=== PATIENT | male | born 1945 | race Caucasian/White ===

== ENCOUNTER 2019-09-01 11:35 | Outpatient (CLI) | payer MEDICARE, SELFPAY ==
[2019-09-01 11:56] LABS: Add Urine Microscopic? NO; Appearance Urine Clear (Clear); Basophils Absolute Auto 0.03 K/mm3 (0.00-0.10); Basophils Percent Auto 0.6 % (0.0-1.0); Bilirubin Urine Negative (Negative); Blood Urine Negative (Negative); Color Urine Yellow (Yellow); Eosinophils Absolute Auto 0.06 K/mm3 (0.02-0.50); Eosinophils Percent Auto 1.2 % (1.0-6.0); Glucose Urine UA Negative (Negative); Hematocrit 44.6 % (37.0-46.0); Hemoglobin 14.8 g/dL (12.4-15.3); Immature Granulocyte Absolute 0.01 K/mm3 (0.00-0.00); Immature Granulocyte Percent A 0.2 % (0.0-0.0); Ketones Urine Negative (Negative); Leukocyte Esterase Ur Negative LEU/UL (Negative); Lymphocytes Absolute Auto 1.94 K/mm3 (1.10-4.50); Lymphocytes Percent Auto 37.2 % (18.0-42.0); Mean Corpuscular HGB Conc 33.2 g/dL (32.0-36.0); Mean Corpuscular Hemoglobin 30.4 pg (27.0-31.0); Mean Corpuscular Volume 91.6 fL (78.0-102.0); Mean Platelet Volume 10.3 fl (8.7-11.0); Monocytes Absolute Auto 0.52 K/mm3 (0.10-0.90); Neutrophils Absolute Auto 2.7 K/mm3 (1.7-7.2); Neutrophils Percent Auto 50.8 % (50.0-70.0); Nitrate Urine Negative (Negative); Platelet Count Result 179 K/mm3 (150-420); Protein Urine Negative (Negative); Red Blood Count 4.87 M/mm3 (4.70-6.10); Red Cell Distribution Width 12.4 % (11.6-14.4); Specific Grav Ur 1.015 (1.010-1.020); Urobilinogen Urine 0.2 mg/dL (0.2-1.0); White Blood Count 5.2 K/mm3 (4.8-10.8)
[2019-09-01 12:40] LABS: Alanine Aminotransferase 23 U/L (16-63); Albumin Level 3.7 g/dL (3.4-5.0); Alkaline Phosphatase 78 U/L (46-116); Anion Gap 11.8 mmol/L (7-16); Aspartate Amino Transferase 26 U/L (15-37); Bilirubin,Total 0.8 mg/dL (0.00-1.00); Blood Urea Nitrogen 12 mg/dL (7-18); Calcium 8.7 mg/dL (8.5-10.1); Carbon Dioxide 28 mmol/L (21-32); Chloride 105 mmol/L (98-108); Cholesterol 188 mg/dL (0-200); Estimated Glomerular Filt Rate 57; Glucose 89 mg/dL (70-99); HDL Direct 40 mg/dL (40-60); LDL Cholesterol Calculated 119 mg/dL (<130); Osmolality Calculated 288 mOsm/kg (285-295); Potassium 4.8 mmol/L (3.5-5.1); Prostate Specific Antigen 0.7 ng/mL (< OR = 4.0); Sodium 140 mmol/L (136-145); Total Protein 7.2 g/dL (6.4-8.2); Triglycerides 147 mg/dL (0-150)
== END 2019-09-01 11:36 | disposition home or self-care (01) ==
LOC: CHSLAB 11:42
PROVIDERS: PCP Internal Medicine; Visit Provider Internal Medicine
DX: E78.2 Mixed hyperlipidemia (principal); Z12.5 Encounter for screening for malignant neoplasm of prostate
CPT/HCPCS: 36415; 80053; 80061; 81003; 84153; 85025; G0103

== ENCOUNTER 2021-10-28 14:13 | Outpatient (CLI) | payer MEDICARE, SELFPAY ==
--- NOTE | ~2021-10-28 | US_ITS ---
EXAMINATION: US carotid duplex BI DATE: 10/28/2021 15:03 INDICATION: Right carotid bruit TECHNIQUE: Grayscale, color Doppler, and pulsed Doppler images of the cervical carotid arteries were obtained. The degree of vessel stenosis is placed in one of the following categories: normal, <50%, 5 0-69%, >=70% but less than near-occlusion, near-occlusion, or total occlusion. Note that percent sten osis relative to normal distal artery lumen diameter is indirectly measured from velocity measurement s as described by Constantin, et al. Radiology 2003; 229:340-346. COMPARISON: None. FINDINGS: RIGHT: The right common carotid artery (CCA) peak systolic velocity (PSV) is 107 cm/s. The right internal ca rotid artery (ICA) PSV is 76 cm/s. The right ICA end-diastolic velocity (EDV) is 12 cm/s. The right I CA/CCA PSV ratio is 0.7. Grayscale and color Doppler images yield an estimate of <50% diameter reduct ion from plaque in the ICA. The external carotid artery (ECA) PSV is 97 cm/s. There is antegrade flow in the right vertebral artery. Incidental 2.6 cm solid isoechoic nodule with smooth margins and with out echogenic foci in the right thyroid (TI-RADS 3, mildly suspicious , FNA if >=2.5 cm, annual follo wup is >=1.5 cm). LEFT: The left CCA PSV is 100 cm/s. The left ICA PSV is 72 cm/s. The left ICA EDV is 17 cm/s. The left ICA/ CCA PSV ratio is 0.7. Grayscale and color Doppler images yield an estimate of <50% diameter reduction from plaque in the ICA. The ECA PSV is 91 cm/s. There is antegrade flow in the left vertebral artery . IMPRESSION: 1. <50% stenosis in the right internal carotid artery. 2. <50% stenosis in the left internal carotid artery. 3. Incidental 2.6 cm TI RADS 3 right thyroid nodule for which ultrasound-guided biopsy would be recom mended. Reviewed, dictated and finalized at location B. IMPRESSION: 1. <50% stenosis in the right internal carotid artery. 2. <50% stenosis in the left internal carotid artery. 3. Incidental 2.6 cm TI RADS 3 right thyroid nodule for which ultrasound-guided biopsy would be recommended.
== END 2021-10-28 14:14 | disposition home or self-care (01) ==
LOC: CHSIMG 14:14
PROVIDERS: PCP Internal Medicine; Visit Provider Internal Medicine
DX: R09.89 Other specified symptoms and signs involving the circulatory and respiratory systems (principal)
CPT/HCPCS: 93880

== ENCOUNTER 2023-02-22 11:49 | Emergency (ER) | payer OTHER, SELFPAY ==
[2023-02-22 11:50] VITALS: BP 188/89; PULSE 73; RESP 18; TEMP 36.5; O2SAT 99
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
[2023-02-22 12:05] VITALS: BP 158/78
== END 2023-02-22 12:10 | disposition home or self-care (01) ==
LOC: CHSED 12:05
PROVIDERS: Emergency Provider Emergency Medicine; PCP Internal Medicine
DX: Z04.1 Encounter for examination and observation following transport accident (principal); E78.5 Hyperlipidemia, unspecified; V47.5XXA Car driver injured in collision with fixed or stationary object in traffic accident, initial encounter; Y92.410 Unspecified street and highway as the place of occurrence of the external cause
CPT/HCPCS: 99282

== ENCOUNTER 2023-03-05 06:55 | Outpatient (CLI) | payer MEDICARE, SELFPAY ==
--- NOTE | ~2023-03-05 | MR_ITS ---
EXAMINATION: MR brain/brain stem wo con DATE: 03/05/2023 09:53 INDICATION: Transient ischemic attack. TECHNIQUE: Magnetic resonance imaging (MRI) of the brain and brainstem was performed without intraven ous contrast. COMPARISON: None. FINDINGS: There are scattered areas of nonspecific increased T2-weighted signal intensity in the cere bral white matter, which is within normal limits for the patient's age. There is no intracranial hem orrhage, acute infarction, or abnormal intracranial mass lesion. The ventricles are normal in size. T here are likely changes of ocular lens replacement surgeries. There is mild mucosal thickening in the paranasal sinuses. The mastoid air cells are normal. IMPRESSION: 1. Normal aging brain. Reviewed, dictated and finalized at location E. IMPRESSION: 1. Normal aging brain.
== END 2023-03-05 06:56 | disposition home or self-care (01) ==
LOC: CHSIMG 06:58
PROVIDERS: PCP Internal Medicine; Visit Provider Internal Medicine
DX: I65.23 Occlusion and stenosis of bilateral carotid arteries (principal)
CPT/HCPCS: 70551

== ENCOUNTER 2023-03-07 12:25 | Outpatient (CLI) | payer MEDICARE, SELFPAY ==
--- NOTE | ~2023-03-07 | US_ITS ---
EXAMINATION: US carotid duplex BI DATE: 03/07/2023 13:07 INDICATION: Carotid stenosis TECHNIQUE: Grayscale, color Doppler, and pulsed Doppler images of the cervical carotid arteries were obtained. The degree of vessel stenosis is placed in one of the following categories: normal, <50%, 5 0-69%, >=70% but less than near-occlusion, near-occlusion, or total occlusion. Note that percent sten osis relative to normal distal artery lumen diameter is indirectly measured from velocity measurement s as described by Constantin, et al. Radiology 2003; [id number]:[id number]. COMPARISON: None. FINDINGS: RIGHT: The right common carotid artery (CCA) peak systolic velocity (PSV) is 116 cm/s. The right internal ca rotid artery (ICA) PSV is 82 cm/s. The right ICA end-diastolic velocity (EDV) is 21 cm/s. The right I CA/CCA PSV ratio is 0.7. Grayscale and color Doppler images yield an estimate of <50% diameter reduct ion from plaque in the ICA. The external carotid artery (ECA) PSV is 98 cm/s. There is antegrade flow in the right vertebral artery. LEFT: The left CCA PSV is 97 cm/s. The left ICA PSV is 74 cm/s. The left ICA EDV is 25 cm/s. The left ICA/C CA PSV ratio is 0.8. Grayscale and color Doppler images yield an estimate of <50% diameter reduction from plaque in the ICA. The ECA PSV is 116 cm/s. There is antegrade flow in the left vertebral artery . IMPRESSION: 1. <50% stenosis in the right internal carotid artery. 2. <50% stenosis in the left internal carotid artery. Reviewed, dictated and finalized at location A.
== END 2023-03-07 12:26 | disposition home or self-care (01) ==
LOC: CHSIMG 12:26
PROVIDERS: PCP Internal Medicine; Visit Provider Internal Medicine
DX: I65.23 Occlusion and stenosis of bilateral carotid arteries (principal)
CPT/HCPCS: 93880

== ENCOUNTER 2023-03-25 10:01 | Outpatient (CLI) | payer MEDICARE, SELFPAY ==
--- NOTE | 2023-04-25 16:51 | WPDHOLTEREM ---
Holter/Event Monitor Holter/Event Monitor Date of procedure: 03/25/23 Holter/Event Procedure: Event Monitor Indications: Transient cerebrovascular attack Conclusion: 1. 25 days event monitor between 03/25/23-04/23/23. There are 65 available transmissions for analysis. 2. Predominant rhythm is sinus rhythm. HR range 45-140 bpm; average HR 63 bpm. 3. There are occasional premature supraventricular complexes with total burden of 1%. There is 1 episode of junctional rhythm at 45 bpm on 04/23/23 at 08:45. No supraventricular tachycardia. 4. There are occasional premature ventricular complexes with total burden of 2%. There is 1 episode of ventricular tachycardia at 140 bpm lasting 5 beats on 04/06/23 at 23:32. 5. No significant pauses greater than 2 seconds. 6. Patient reports 2 episodes of symptoms of dizziness and symptom other than listed which demonstrate sinus rhythm, HR range 77-84 bpm.
== END 2023-03-25 10:02 | disposition home or self-care (01) ==
LOC: CHSCARD 10:03
PROVIDERS: PCP Internal Medicine; Visit Provider Internal Medicine
DX: G45.9 Transient cerebral ischemic attack, unspecified (principal)
CPT/HCPCS: 93270

== ENCOUNTER 2023-04-11 13:43 | Outpatient (CLI) | payer MEDICARE, SELFPAY ==
--- NOTE | 2023-04-11 13:49 | ECHO_ITS ---
Patient Info Name: David Cash Age: 77 years : 1945 Gender: Male Ht: 71 in Wt: 215 lbs BSA: 2.23 m2 HR: 88 bpm BP: 180 / 90 mmHg Heart Rhythm: Sinus Rhythm Technical Quality: Good Exam Date: 04/11/2023 2:40 PM Exam Location: Echo Lab Patient Status: Outpatient Admit Date: 04/11/2023 Staff Ordering Physician: Rachele Gerard MD Manager Federal: Angeles Sanchez RDCS Attending Provider: Rachele Gerard MD Referring Physician: Moustapha KAY; Exam Type: CA echo doppler color flow Study Info Indications - TIA Complete two-dimensional, color flow and Doppler transthoracic echocardiogram is performed. Summary 1. Complete two-dimensional, color flow and Doppler transthoracic echocardiogram is performed. 2. Left ventricular chamber dimension is moderately enlarged. 3. Left ventricular systolic function is normal, estimated at 55-60%. 4. The left ventricular diastolic function is grade I diastolic dysfunction. 5. E/e' 9 is minimally elevated. 6. Left atrial chamber dimension is moderately enlarged. 7. There is mild aortic valve sclerosis. 8. There is mild aortic valve regurgitation. 9. There is trace mitral valve regurgitation. 10. There is mild tricuspid valve regurgitation. 11. No pulmonary hypertension, estimated pulmonary arterial systolic pressure is 31 mmHg. 12. The aortic root size at the sinus of Valsalva is mildly dilated at 4.4 cm.. Left Ventricle E/e' 9 is minimally elevated. Left ventricular chamber dimension is moderately enlarged. Left ventricular systolic function is normal, estimated at 55-60%. The left ventricular diastolic function is grade I diastolic dysfunction. Right Ventricle Right ventricular systolic function is normal and with normal TAPSE 3.0 cm. Right ventricular chamber dimension is normal. Left Atria Left atrial chamber dimension is moderately enlarged. Right Atria Right atrial chamber dimension is normal. Aortic Valve The aortic valve is trileaflet. There is mild aortic valve sclerosis. There is no aortic valve stenosis. There is mild aortic valve regurgitation. Pulmonic Valve There is no pulmonic regurgitation. Mitral Valve There is no mitral valve stenosis. There is trace mitral valve regurgitation. Tricuspid Valve There is mild tricuspid valve regurgitation. No pulmonary hypertension, estimated pulmonary arterial systolic pressure is 31 mmHg. Pericardium/Pleural There is no pericardial effusion. Inferior Vena Cava Normal inferior vena cava with >50% collapse upon inspiration consistent with normal right atrial pressure, 5 mmHg. Aorta The aortic root size at the sinus of Valsalva is mildly dilated at 4.4 cm.. Left Ventricular Outflow Tract Name Value Normal LVOT 2D LVOT Diameter 2.1 cm LVOT Doppler LVOT Peak Velocity 131 cm/s LVOT Peak Gradient 4 mmHg LVOT Mean Gradient 3 mmHg LVOT VTI 35 cm LVOT VTI/AV VTI Ratio 1.0 LVOT Stroke Volume 123 ml Pulmonic Valve Name
== END 2023-04-11 13:44 | disposition home or self-care (01) ==
LOC: CHSIMG 13:46
PROVIDERS: PCP Internal Medicine; Visit Provider Internal Medicine
DX: G45.9 Transient cerebral ischemic attack, unspecified (principal); I08.3 Combined rheumatic disorders of mitral, aortic and tricuspid valves
CPT/HCPCS: 93306